=== PATIENT | male | born 1930 | race Caucasian/White ===

== ENCOUNTER 2016-04-05 08:48 | Inpatient (IN) | payer OTHER, MEDICARE ==
[~2016-04-05] VITALS: Ht 175.3 cm; Wt 92.7 kg
[2016-04-05] MEDS ORDERED: DOXA8TAB2 PO (09:51)
[2016-04-05] MEDS ORDERED: GLIM4TAB PO (09:51)
[2016-04-05] MEDS ORDERED: POTA20TA16 PO (09:51)
[2016-04-05] MEDS ORDERED: CLOP1TAB15 PO (09:51)
[2016-04-05] MEDS ORDERED: PARO1TAB27 PO (09:51)
[2016-04-05] MEDS ORDERED: LOSA100T26 PO (09:51)
[2016-04-05] MEDS ORDERED: ASPI81TA28 PO (09:51)
[2016-04-05] MEDS ORDERED: TRAZ50TA35 PO (09:51)
[2016-04-05] MEDS ORDERED: FINA5TAB PO (09:51)
[2016-04-05] MEDS ORDERED: SIMV10TA2 PO (09:51)
[2016-04-05] MEDS ORDERED: ATR25 PO (09:51)
[2016-04-05] MEDS ORDERED: PRLSR20 PO (09:51)
[2016-04-05] MEDS ORDERED: METO-217 PO (09:51)
[2016-04-05] MEDS ORDERED: LINA1TAB PO (09:51)
[2016-04-05 10:16] VITALS: BP_SYST 210; BP_SYST 211; BP_DIAS 77; BP_DIAS 91; PULSE 51; TEMP 36.6; O2SAT 99; Ht 175.3 cm; Wt 92.7 kg
[2016-04-05] MEDS ORDERED: NITROGLYCERIN 0.4 MG SL PER TAB CHARGE SL PRN (11:00)
[2016-04-05] MEDS ORDERED: ACETAMINOPHEN 325 MG TAB PO PRN (11:00)
[2016-04-05] MEDS ORDERED: LOSARTAN POTASSIUM 50 MG TAB PO SCH (11:00)
[2016-04-05] MEDS ORDERED: ONDANSETRON INJ 2 MG/ML 2 ML VIAL IV PRN (11:00)
[2016-04-05] MEDS ORDERED: MAGNESIUM HYDROXIDE SUSP 30 ML UDC PO PRN (11:00)
[2016-04-05] MEDS ORDERED: POLYETHYLENE (MIRALAX) 17 GM PACK PO PRN (11:00)
--- NOTE | 2016-04-05 11:46 | HISTORY & PHYSICAL EXAMINATION ---
DATE OF ADMISSION: 04/05/2016 CHIEF COMPLAINT: Shortness of breath. ADMITTING DIAGNOSES: Tachybrady syndrome, possible acute systolic heart failure. HISTORY: Mr. Campbell is a transfer from [facility]. The patient has had 1 week preceding history of increasing shortness of breath and a burning in his chest. The patient got to the point where he was sleeping in a chair at home. He is uncomfortable. Reportedly, when he presented to [facility], they felt he was in acute systolic heart failure with atrial fibrillation with a decreased ventricular rate (actually may be flutter at times). The patient was given diuretic therapy of Lasix, had good diuresis. He was found to have a mild elevation of his troponin and elevation of his BNP. He was felt to possibly be in NSTEMI. The patient does have a known cardiac history with stents x3 at [facility]; however, they have no beds. They then called our facility, we did have a telemetry bed available, he was transferred to our facility. Reportedly, they have no cardiac capabilities at [facility]. Currently, the patient is comfortable. He feels he has diuresed significantly while in the [facility]. The patient had some nagging right-sided abdominal pain which is an additional symptom complex that was described by the patient in the ER and his . His and daughter are at bedside and state his breathing has been significantly worse of late. PAST MEDICAL HISTORY: Coronary artery disease as mentioned with stents, diabetes with recent change in his oral diabetic medications, BPH, hypertension, and previous hip replacement. MEDICATIONS: On presentation are: 1. Amaryl 8 mg a day. 2. Aspirin 81 mg a day. 3. Plavix 75 mg a day. 4. Cardura 8 mg a day. 5. Proscar 5 mg a day. 6. Potassium 20 mEq a day. 7. Hydroxyzine 25 mg a day. 8. Losartan 100/25 daily. 9. Metoprolol ER 50 a day. 10. Paxil 20 mg a day. 11. Zocor 10 mg a day. 12. Tradjenta unknown dose daily. 13. Trazodone 50 at bedtime. 14. Omeprazole 20 a day. SOCIAL HISTORY: The patient has a distant smoking history. He also chewed snuff in his life. He has quit for many years. Does not drink alcohol. He is , accompanied by his . FAMILY HISTORY: Positive for heart disease, diabetes. REVIEW OF SYSTEMS: Ten systems were reviewed and are negative with the addition of frequent bowel movements which are formed, these are occurring currently. Otherwise, he has no other symptoms to complain. Ten systems are reviewed and otherwise negative. Of note, with regard to his chest pain, it is burning in nature, it is minor, 2-3/10. It is not reproducible by ambulation. It is worsened with a deep breath. It is not worsened with recumbency. He has no diaphoresis or nausea associated with it. He feels the shortness of breath, although occurring at the same time of his burning and his chest pain, is not brought on or associated with it. PHYSICAL EXAMINATION: GENERAL: He is a pleasant gentleman, conversant and actually joking a bit. VITAL SIGNS: Temperature 36.6, pulse 51 and down to 30, respiration rate 22-26, blood pressure is markedly elevated at 211/91, and O2 sats 99 on 2 liters. HEENT: PERRL, EOMI. He has a scar about his nose. His oropharynx is clear. NECK: Without lymphadenopathy. Currently, there is no JVD. HEART: Irregularly irregular, bradycardic. There are no murmurs that I hear. LUNGS: Clear without wheezes or crackles. Good air movement. ABDOMEN: Normoactive bowel sounds. He is diffusely mildly tender, worse so in the right mid quadrant. There is no guarding, no organomegaly. There are no abdominal bruits, no masses. EXTREMITIES: With edema to the knee, possibly 1+, it is doughy edema. He has no venous cords. No Homans sign. He has no cyanosis. NEUROLOGICAL: He is awake, alert and appropriate. Cranial nerves II-XII are intact. Equal symmetrical strength and sensation in upper and lower extremities. LABORATORY DATA: From [facility] includes a white count of 8.8, H\T\H 12 and 39, platelet count 165. BUN and creatinine are 38 and 1.7. Potassium 3.4. Glucose markedly elevated at 381. Troponin slightly elevated by their scale. EKG showing bradycardia. ASSESSMENT: An 85-year-old male here with bradycardia, 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 PLAN: For his cardiac disease, because of elevation of his troponin, this may be from his renal failure or could be from his marked bradycardia. We will trend his cardiac enzymes. We will not formally diagnose him as an NSTEMI at this point in time. We will obtain an echocardiogram and cardiac consult. We will hold his beta kiley. We will maintain his losartan with augmenting hydralazine for blood pressure control and also continue his Cardura for his BPH, will likely have some blood pressure effects. Regarding his cardiac risk factors, we will maintain his Plavix, aspirin and Zocor. Regarding his diabetes, we will maintain his Amaryl with an insulin sliding scale and hold his Tradjenta and put him on a diabetic diet. If his blood glucoses are difficult to control, we could institute an insulin drip. BPH, we will maintain Cardura and Proscar. He is having no problems moving his urine at this time. For DVT prevention, we will employ enoxaparin. This patient does not wish to be mechanically ventilated but will permit any other forms of resuscitation. LEATHA
[2016-04-05 12:00] VITALS: BP 167/72; PULSE 49; TEMP 36.9; O2SAT 97
[2016-04-05] MEDS ORDERED: PATIENT'S ALLERGY INFO NEEDS ENTERED SCH (12:00)
[2016-04-05] MEDS ORDERED: GLUCOSE 40% GEL 15 GM TUBE PO PRN (13:00)
[2016-04-05] MEDS ORDERED: GLUCAGON FOR INJ 1 MG VIAL SQ PRN (13:00)
[2016-04-05] MEDS ORDERED: GLUCOSE 10 TABS/TUBE PO PRN (13:00)
[2016-04-05] MEDS ORDERED: DEXTROSE 50% 50 ML SYR IV PRN (13:00)
[2016-04-05] MEDS: LOSARTAN POTASSIUM 50 MG TAB PO SCH (13:09)
[2016-04-05] MEDS: INSULIN ASPART 100 UNITS/ML 3 ML PEN SC SCH ×3 (13:12→21:00)
[2016-04-05 13:27] LABS: LYME DISEASE AB IGG NEG (NEG); LYME DISEASE AB IGM NEG (NEG)
[2016-04-05 13:42] LABS: INR 1.2 (0.9-1.1); PROTHROMBIN TIME (PATIENT) 12.4 SECONDS (9.0-12.0)
[2016-04-05 16:00] VITALS: BP 146/58; PULSE 58; TEMP 37; O2SAT 97
[2016-04-05 16:26] LABS: CREATININE 1.6 mg/dl (0.60-1.40)
[2016-04-05] MEDS: ENOXAPARIN 40 MG/0.4 ML SYR SC SCH (17:08)
[2016-04-05 19:20] VITALS: BP 188/88; PULSE 55; TEMP 36.8; O2SAT 98
[2016-04-05 19:46] VITALS: BP 182/80
[2016-04-05] MEDS: HydrALAZINE HCL 20 MG/ML VIAL IV PRN (19:51)
[2016-04-05 20:58] VITALS: BP 149/67; PULSE 51
[2016-04-05] MEDS: SIMVASTATIN 10 MG TAB PO SCH (21:02)
[2016-04-05] MEDS: TRAZODONE HCL 50 MG TAB PO SCH (21:02)
[2016-04-06] VITALS (9 sets, daily range): BP systolic 133–199; BP diastolic 56–96; PULSE 44–83; TEMP 36.5–36.9; O2SAT 93–98
[2016-04-06 06:31] LABS: HEMATOCRIT 37.6 % (42-52); MEAN CORPUSCULAR HEMOGLOBIN 28.8 pg (25-34); MEAN CORPUSCULAR HGB CONC 33.5 g/dl (32-36); MEAN PLATELET VOLUME 10.3 fL (7.4-10.4); PLATELET COUNT 156 K/uL (130-400); RED BLOOD COUNT 4.37 M/uL (4.7-6.1); WHITE BLOOD COUNT 8.67 K/uL (4.8-10.8)
[2016-04-06] MEDS: INSULIN ASPART 100 UNITS/ML 3 ML PEN SC SCH ×4 (07:00→20:55)
[2016-04-06 07:04] LABS: BUN/CREATININE RATIO 23.6 (10-20); CALCIUM 8.5 mg/dl (8.5-10.1); CREATININE 1.5 mg/dl (0.60-1.40); POTASSIUM 2.6 mmol/L (3.5-5.1)
[2016-04-06] MEDS: PANTOprazole SOD 40 MG TAB PO SCH (07:53)
[2016-04-06] MEDS: CLOPIDOGREL BISULFATE 75 MG TAB PO SCH (07:53)
[2016-04-06] MEDS: PAROXETINE 20 MG TAB PO SCH (07:53)
[2016-04-06] MEDS: GLIMEPIRIDE 2 MG TAB PO SCH (07:54)
[2016-04-06] MEDS: FINASTERIDE 5 MG TAB PO SCH (07:54)
[2016-04-06] MEDS: DOXAZosin MESYLATE TAB 4 MG TAB PO SCH (07:54)
[2016-04-06] MEDS: POTASSIUM CHLORIDE 20 MEQ TABCR PO SCH ×4 (07:55→20:50)
[2016-04-06] MEDS: ASPIRIN 81 MG ECTAB PO SCH (07:55)
[2016-04-06] MEDS: LOSARTAN POTASSIUM 50 MG TAB PO SCH (07:56)
[2016-04-06] MEDS ORDERED: MAGNESIUM SULFATE 1GM / D5W 1 GM in PREMIXED IN D5W 100 ML IV ONE (08:30)
[2016-04-06] MEDS ORDERED: DOXAZosin MESYLATE TAB 4 MG TAB PO SCH (09:00)
[2016-04-06] MEDS: POTASSIUM CHLR 10 MEQ / WTR 10 MEQ in PREMIXED WATER 100 ML IV SCH ×3 (09:03→11:57)
--- NOTE | 2016-04-06 11:51 | ECHOCARDIOGRAM REPORT ---
*NOTICE TO RECEIVING [employer] This information is strictly Confidential and protected under [place] law. [place] law prohibits you from making any further disclosure of this information unless further disclosure is expressly permitted by the written consent of the person to whom it pertains or is authorized by law. A general authorization for the release of medical or other information is not sufficient for this purpose. Hospital accepts no responsibility if the information is made available to any other person, INCLUDING THE PATIENT. Interpretation Summary * Name: RENEE WEBB Study Date: 04/06/2016 08:10 AM BP: 149/56 mmHg * Patient Location: C.2E\S\E209\S\1 HR: 54 * : 1930 (M/d/yyyy) Gender: Male Height: 69 in * Age: 85 yrs Ethnicity: CA Weight: 204 lb * Ordering Physician: Toni Lopez * Performed By: Xiomy Edmonds RDCS * * Reason For Study: CHF * BSA: 2.1 m2 * -- Conclusions -- * No prior study for comparison. * The left ventricle is normal in size. * There is moderate concentric left ventricular hypertrophy. * Left ventricular systolic function is low normal. * Ejection Fraction = 50-55%. * There is borderline global hypokinesis of the left ventricle. * Moderate to severe valvular aortic stenosis. * Mild aortic regurgitation. * There is moderate mitral regurgitation. * The left atrium is mildly dilated. * There is mild to moderate tricuspid regurgitation. * Right ventricular systolic pressure is elevated at 40-50mmHg. Procedure Details * A complete two-dimensional transthoracic echocardiogram was performed (2D, M-mode, Doppler and color flow Doppler). Left Ventricle * The left ventricle is normal in size. * There is moderate concentric left ventricular hypertrophy. * Left ventricular systolic function is low normal. * Ejection Fraction = 50-55%. * There is borderline global hypokinesis of the left ventricle. Right Ventricle * The right ventricle is normal in size and function. Atria * The left atrium is mildly dilated. * The right atrium is mild to moderately dilated. * The interatrial septum is intact with no evidence for an atrial septal defect. Mitral Valve * The mitral valve is normal in structure and function. * There is moderate mitral regurgitation. Tricuspid Valve * The tricuspid valve is normal in structure and function. * There is mild to moderate tricuspid regurgitation. * Right ventricular systolic pressure is elevated at 40-50mmHg. Aortic Valve * The aortic valve is trileaflet but malformed. * Moderate to severe valvular aortic stenosis. * Aortic valve area was calculated at 1.0 cm\S\2 using the continuity equation. * Mild aortic regurgitation. Pulmonic Valve * The pulmonary valve is not well seen, but the Doppler examination is normal without significant regurgitation or stenosis. * There is no pulmonic valvular regurgitation. Great Vessels * The aortic root is normal size. * No obvious dissection could be visualized. * The pulmonary artery is not well visualized, but is probably normal size. Pericardium/Pleural * There is no pericardial effusion. Great Vessels * The inferior vena cava is moderately dilated. MMode 2D Measurements and Calculations IVSd 1.4 cm LVIDd 4.9 cm LVIDs 3.3 cm LVPWd 1.2 cm IVS/LVPW 1.2 FS 33.4 % EDV(Teich) 113.9 ml ESV(Teich) 43.3 ml EF(Teich) 62.0 % EDV(cubed) 119.1 ml ESV(cubed) 35.1 ml EF(cubed) 70.5 % LV mass(C)d 251.2 grams LV mass(C)dI 120.6 grams/m\S\2 CO(Teich) 3.2 l/min CI(Teich) 1.5 l/min/m\S\2 SV(Teich) 70.6 ml SI(Teich) 33.9 ml/m\S\2 CO(cubed) 3.8 l/min CI(cubed) 1.8 l/min/m\S\2 SV(cubed) 84.0 ml SI(cubed) 40.3 ml/m\S\2 Ao root diam 3.1 cm Ao root area 7.5 cm\S\2 ACS 1.6 cm LA dimension 4.1 cm asc Aorta Diam 3.3 cm LA/Ao 1.3 LVOT diam 2.0 cm LVOT area 3.3 cm\S\2 LVAd ap4 36.9 cm\S\2 LVLd ap4 8.5 cm EDV(MOD-sp4) 131.0 ml LVAs ap4 22.4 cm\S\2 LVLs ap4 7.5 cm ESV(MOD-sp4) 56.0 ml EF(MOD-sp4) 57.3 % LVAd ap2 37.1 cm\S\2 LVLd ap2 9.2 cm EDV(MOD-sp2) 124.0 ml LVAs ap2 22.9 cm\S\2 LVLs ap2 8.3 cm ESV(MOD-sp2) 53.9 ml EF(MOD-sp2) 56.5 % CO(MOD-sp4) 3.4 l/min CI(MOD-sp4) 1.6 l/min/m\S\2 SV(MOD-sp4) 75.0 ml SI(MOD-sp4) 36.0 ml/m\S\2 CO(MOD-sp2) 3.2 l/min CI(MOD-sp2) 1.5 l/min/m\S\2 SV(MOD-sp2) 70.1 ml SI(MOD-sp2) 33.7 ml/m\S\2 Doppler Measurements and Calculations MV E max vince 111.6 cm/sec MV A max vince 54.3 cm/sec MV E/A 2.1 MV dec time 0.23 sec Ao V2 max 308.9 cm/sec Ao max PG 38.4 mmHg Ao max PG (full) 34.9 mmHg Ao V2 mean 219.8 cm/sec Ao mean PG 22.2 mmHg Ao V2 VTI 71.6 cm LUCIE(V,A) 1.0 cm\S\2 LUCIE(V,D) 1.0 cm\S\2 AI max vince 352.9 cm/sec AI max PG 49.8 mmHg AI dec slope 162.5 cm/sec\S\2 AI P1/2t 636.0 msec LV V1 max PG 3.5 mmHg LV V1 max 93.8 cm/sec MR max vince 583.0 cm/sec MR max PG 135.9 mmHg MR mean vince 456.0 cm/sec MR mean PG 90.4 mmHg MR VTI 192.7 cm SV(Ao) 536.2 ml SI(Ao) 257.4 ml/m\S\2 PA V2 max 112.7 cm/sec PA max PG 5.1 mmHg PA acc slope 719.4 cm/sec\S\2 PA acc time 0.10 sec TR max vince 311.2 cm/sec PA pr(Accel) 36.2 mmHg
--- NOTE | 2016-04-06 12:57 | Progress Note ---
Subjective Date of Service: Apr 06, 2016. Subjective Pt is still asymptomatic with relative bradycardia, no other symptoms today Review of Systems Constitutional: No fever Respiratory: No cough, No dyspnea on exertion, No shortness of breath Cardiac: No chest pain, No edema Abdomen: No diarrhea, No nausea, No pain, No vomiting Male : No dysuria, No urinary frequency Objective Vital Signs Date Time Temp Pulse Resp B/P Pulse Ox O2 Delivery O2 Flow Rate FiO2 04/06/16 08:01 36.6 44 16 173/74 93 Room Air 04/06/16 04:00 Nasal Cannula 2.0 04/06/16 04:00 36.9 54 22 149/56 98 Nasal Cannula 2.0 04/06/16 00:00 36.6 54 20 148/64 97 Nasal Cannula 4.0 04/06/16 00:00 Nasal Cannula 2.0 04/05/16 20:58 51 149/67 04/05/16 20:00 Nasal Cannula 2.0 04/05/16 19:46 182/80 04/05/16 19:20 36.8 55 18 188/88 98 Nasal Cannula 2.0 04/05/16 16:00 Nasal Cannula 2.0 04/05/16 16:00 37.0 58 16 146/58 97 Nasal Cannula 2.0 04/05/16 12:00 36.9 49 16 167/72 97 Nasal Cannula 2.0 04/05/16 12:00 Nasal Cannula 2.0 04/05/16 10:16 36.6 51 26 210/77 99 Nasal Cannula 2.0 211/91 Physical Exam General Appearance: WD/WN, no apparent distress Neck: supple, thyroid normal Respiratory/Chest: chest non-tender, lungs clear, normal breath sounds Cardiovascular: no murmur, + bradycardia Abdomen: normal bowel sounds, non tender, soft Extremities: no pedal edema, no calf tenderness Neurologic/Psychiatric: alert, oriented x 3 Laboratory Results Last 24 Hours Test 04/05/16 11:19 04/05/16 11:47 04/05/16 16:16 04/05/16 19:12 Troponin I 0.184 ng/ml 0.207 ng/ml Prothrombin Time 12.4 SECONDS Prothromb Time International Ratio 1.2 Creatinine 1.60 mg/dl Est Creatinine Clear Calc Drug Dose 38.0 ml/min Estimated GFR () 44.9 Estimated GFR (Non- 38.7 Total Bilirubin 1.2 mg/dl Direct Bilirubin 0.3 mg/dl Aspartate Amino Transf (AST/SGOT) 16 U/L Alanine Aminotransferase (ALT/SGPT) 30 U/L Alkaline Phosphatase 60 U/L Total Protein 6.3 gm/dl Albumin 3.3 gm/dl Thyroid Stimulating Hormone (TSH) 4.460 uIu/ml Lyme Disease IgG Antibody NEG Lyme Disease IgM Antibody NEG Bedside Glucose 178 mg/dl Test 04/05/16 20:06 04/06/16 06:16 04/06/16 06:17 Bedside Glucose 179 mg/dl 167 mg/dl White Blood Count 8.67 K/uL Red Blood Count 4.37 M/uL Hemoglobin 12.6 g/dL Hematocrit 37.6 % Mean Corpuscular Volume 86.0 fL Mean Corpuscular Hemoglobin 28.8 pg Mean Corpuscular Hemoglobin Concent 33.5 g/dl RDW Standard Deviation 48.3 fL RDW Coefficient of Variation 15.2 % Platelet Count 156 K/uL Mean Platelet Volume 10.3 fL Sodium Level 143 mmol/L Potassium Level 2.6 mmol/L Chloride Level 101 mmol/L Carbon Dioxide Level 32 mmol/L Anion Gap 10.0 mmol/L Blood Urea Nitrogen 35 mg/dl Creatinine 1.50 mg/dl Est Creatinine Clear Calc Drug Dose 40.5 ml/min Estimated GFR () 48.5 Estimated GFR (Non- 41.9 BUN/Creatinine Ratio 23.6 Random Glucose 177 mg/dl Calcium Level 8.5 mg/dl Assessment and Plan 85-year-old male here with bradycardia, 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 NSTEMI? elevation of his troponin,could also be from chronic renal failure stage 3 echocardiogram shows preserved EF, pending cardiac consult. Hold his beta kiley. losartan with prn hydralazine for blood pressure control Cardiac risk reduction did have previous stents continue aspirin plavix and zocor diabetes, Amaryl insulin sliding scale BPH, Cardura and Proscar. For DVT prevention, we will employ enoxaparin. This patient does not wish to be mechanically ventilated but will permit any other forms of resuscitation.
[2016-04-06] MEDS: ENOXAPARIN 40 MG/0.4 ML SYR SC SCH (16:31)
[2016-04-06] MEDS: HydrALAZINE HCL 20 MG/ML VIAL IV PRN (20:10)
[2016-04-06] MEDS: SIMVASTATIN 10 MG TAB PO SCH (20:51)
[2016-04-06] MEDS: TRAZODONE HCL 50 MG TAB PO SCH (20:52)
--- NOTE | 2016-04-06 22:12 | Progress Note ---
Progress Note Paged by nursing 21:07 Patient was complaining of right-sided chest burning. 08/02. No radiation to the neck or back. She gave 2 nitro, which patient notes helped, now pain is minimal to absent. S: patient doing well at this time, notes that pain is much improved. Denies palpitations, orthopnea, lightheadedness O: VSS HR 76; BP 139/65 Lungs clear S1 and S2 with systolic murmur in all lung bethea; noted on Echo to have /AR and MR JVD 3 cm, accentuated with RUQ palpation to angle of mandible No bibasilar crackles EKG: Atrial fibrillation; rate 84, no ecropy or pauses LAD and RBBB similar to previous EKG Anteroseptal infarct similar to previous EKG ST depression in V5 and V6, new change noted pre-Nitro; mild improvement though still present post-nitro A: 85 year old male with atypical anginal pain, now resolved with 2 nitro He is due to procedure tomorrow so in the absence of continued symptoms, will hold off on giving full dose ASA at this time Cardiac enzymes drawn: troponin slightly elevated, as compared to 0.207 on 04/05 Item Value Date Time Creatine Kinase MB 5.1 ng/ml H 04/06/162214 Creatine Kinase MB Ratio 4.1 H 04/06/162214 Troponin I 0.233 ng/ml *H 04/06/162214 Total Creatine Kinase 124 U/L 04/06/162214 P: Will trend enzymes, next check with AM labs Currently pain free; Nitro PRN for chest pain
[2016-04-06 23:02] LABS: CKMB/CK RATIO 4.1 (0-3.0)
[2016-04-07] VITALS (8 sets, daily range): BP systolic 115–187; BP diastolic 65–97; PULSE 69–98; TEMP 36.6–36.8; O2SAT 95–97
--- NOTE | 2016-04-07 01:09 | CARDIOLOGY CONSULTATION ---
DATE OF CONSULTATION: 04/06/2016 PERTINENT HISTORY: Mr. Campbell is an 85-year-old white male transferred from [facility] yesterday in decompensated congestive heart failure with a bradycardic rate. This consultation was ordered to assist in his management. The patient was in his usual state of health until several weeks ago when he began to note progressive exertional dyspnea and lower extremity edema. He also began to develop orthopnea and had several episodes of PND. The patient never experienced chest discomfort. There is no syncope, presyncope, PND, or claudication. The patient presented to the [facility] with the above complaint. He was found to be in decompensated congestive failure and was given intravenous Lasix. His EKG apparently noted atrial fibrillation with a slow ventricular response and he was transferred to our institution for further care. He has continued with intravenous diuretics and according to his report, has lost 10 pounds since presenting to [place] yesterday. He has dramatically improved in terms of his exertional dyspnea. The patient carries a history of coronary artery disease. He had 3 intracoronary stents placed at [facility] approximately 5-10 years ago. Further details are not available at this time. His plans to bring in the information cards from his intracoronary stents tomorrow. Currently, the patient is resting comfortably in the bedside chair without complaints. His and son are at the bedside. PAST MEDICAL HISTORY: 1. Coronary artery disease. 2. Intracoronary stents x3 5-10 years ago -- details pending. 3. Hypertension. 4. Hypercholesterolemia. 5. Status post left carotid endarterectomy -- 2009. 6. Diabetes mellitus. 7. BPH. 8. Status post total hip replacement. MEDICATIONS: 1. Cardura 8 mg daily. 2. Proscar 5 mg per day. 3. Aspirin 81 mg per day. 4. Plavix 75 mg per day. 5. Lovenox 40 mg subQ daily. 6. Potassium 20 mEq t.i.d. (new medication). 7. Zocor 10 mg at bedtime. 8. Amaryl 8 mg daily. 9. Desyrel 25 mg at bedtime. ALLERGIES: None. SOCIAL HISTORY: The patient is and lives with his in [place]. Does not use tobacco or alcohol. FAMILY HISTORY: Noncontributory. REVIEW OF SYSTEMS: A 10-point review of systems is negative except for that described above. PHYSICAL EXAMINATION: GENERAL: This is a well-developed, well-nourished elderly white male, seated in the chair without complaints. VITAL SIGNS: Blood pressure is 160/80 with a regular pulse of 50. Respiratory rate is 20. The patient is afebrile at 36.7 degrees Celsius. Saturation is 96% on 2 liters nasal cannula. HEENT: Negative. NECK: Supple with full carotid upstrokes. There are no carotid bruits. Jugular venous pressure is difficult to assess. There is no thyromegaly. CARDIOVASCULAR: Reveals a regular rhythm with distant heart sounds. No obvious murmurs. LUNGS: Note decreased breath sounds at the bases but no rales, rhonchi, or wheezes. ABDOMEN: Soft and nontender without bruits. EXTREMITIES: Reveal intact radial artery pulses bilaterally. Trace to 1+ pretibial edema is noted. DATA: CBC notes hemoglobin of 12.6, hematocrit 37.6, white count 8.6, platelet count 156,000. Electrolytes note a sodium of 143, potassium 2.6, chloride 101, bicarb 32, BUN 35, creatinine 1.5, glucose 177. Troponin I levels are 0.184 and 0.207. TSH is 4.66. Lyme titer is negative. Echocardiogram interpreted by Dr. Garcia today notes low normal ejection fraction of 50-55%. There is evidence of moderate to severe aortic stenosis with a valve area calculated at 1.0 cm2. Moderate mitral and tricuspid regurgitation is seen. Initial EKG notes sinus bradycardia at 50 with a complete right bundle branch pattern. Second tracing notes atrial fibrillation with a slow ventricular response. Right bundle branch block again noted. IMPRESSION: Mr. Campbell was admitted with decompensated congestive heart failure and a profound bradycardia. He is on NOAC drugs. 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 It appears that he may require permanent pacemaking. We will ask Dr. Yeh's opinion tomorrow. PLAN: 1. Continue current medications as you are. 2. Agree with continued diuresis. 3. Consult Dr. Yeh for consideration of permanent pacemaking. [facility]
[2016-04-07] MEDS: INSULIN ASPART 100 UNITS/ML 3 ML PEN SC SCH ×4 (07:00→20:54)
[2016-04-07 07:09] LABS: BUN/CREATININE RATIO 24.2 (10-20); CALCIUM 8.3 mg/dl (8.5-10.1); CREATININE 1.5 mg/dl (0.60-1.40)
[2016-04-07 07:15] LABS: CKMB/CK RATIO 10.5 (0-3.0)
[2016-04-07] MEDS: HydrALAZINE HCL 20 MG/ML VIAL IV PRN (07:31)
[2016-04-07] MEDS: LOSARTAN POTASSIUM 50 MG TAB PO SCH (07:50)
[2016-04-07] MEDS: DOXAZosin MESYLATE TAB 4 MG TAB PO SCH (07:50)
[2016-04-07] MEDS: FINASTERIDE 5 MG TAB PO SCH (07:50)
[2016-04-07] MEDS: PANTOprazole SOD 40 MG TAB PO SCH (07:50)
[2016-04-07] MEDS: ASPIRIN 81 MG ECTAB PO SCH (07:51)
[2016-04-07] MEDS: PAROXETINE 20 MG TAB PO SCH (07:51)
[2016-04-07] MEDS: POTASSIUM CHLORIDE 20 MEQ TABCR PO SCH ×2 (07:51→08:34)
[2016-04-07] MEDS: CLOPIDOGREL BISULFATE 75 MG TAB PO SCH (07:51)
[2016-04-07] MEDS: GLIMEPIRIDE 2 MG TAB PO SCH (07:51)
--- NOTE | 2016-04-07 09:58 | CARDIOLOGY PROGRESS NOTE ---
DATE: 04/07/2016 SUBJECTIVE: Mr. Campbell is resting comfortably in bed without complaints of chest pain or dyspnea. His situation was reviewed in detail with Dr. Yeh. As we review his home medications. He was apparently on metoprolol succinate 50 mg daily. Since this has been held, his heart rate has improved dramatically. OBJECTIVE: VITAL SIGNS: Blood pressure is 187/85, followed by a value of 115/65 after hydralazine 10 mg IV push. Pulse is regular at 75. Respiratory rate is 20 and the patient is afebrile at 36.6 degrees Celsius. Saturations 97% on 2 liters nasal cannula. NECK: Supple with mildly delayed and prolonged carotid upstrokes. No transmitted murmurs. No bruits. Jugular venous pressure is flat at 90 degrees. There is no thyromegaly. CARDIOVASCULAR: Reveals a regular rhythm with distant heart sounds. A 2/6 basal systolic ejection murmur is noted. LUNGS: Clear without rales, rhonchi, or wheezes. ABDOMEN: Obese without bruits. EXTREMITIES: Reveal intact radial artery pulses bilaterally. Trace pretibial edema is noted. DATA: CBC notes hemoglobin of 12.6, hematocrit 36.7, white count 8.6, platelet count 156,000. Electrolytes note a sodium of 144, potassium 3.0, chloride 104, bicarbonate 31, BUN 36, creatinine 1.5, glucose 177. Troponin I level is increased to 2.27 from a value of 0.233 yesterday. CKs remain normal. EKG this morning notes atrial fibrillation with ventricular response of 72 beats per minute. There is a right bundle branch block and a left anterior hemiblock. cardiac monitor technician notes paroxysms of atrial fibrillation interposed with sinus rhythm. IMPRESSION AND PLAN: 1. Bradycardia -- At time of presentation, bradycardia was present with both atrial fibrillation and sinus rhythm. Review of outside records now notes that he was on metoprolol succinate 50 mg daily. Since that has been held at the time of admission, his baseline heart rate has increased into the 50-70 range. It does not appear that a pacemaker is indicated at this time. 2. Diastolic congestive heart failure -- recent symptoms may have occurred due to his underlying bradycardic rate. Hopefully, with diuresis, and improvement in his basal heart rate, his symptoms will improve. 3. Increased troponin -- the patient does not give symptoms consistent with an acute coronary syndrome. Suspect that this is a supply-demand mismatch realizing his moderate left ventricular hypertrophy and his significantly elevated blood pressure intermittently. 4. Coronary artery disease -- status post intracoronary stents x3, 5 to 10 years ago in [place]. Details pending. 5. Moderate to severe aortic stenosis. 6. Low normal left ventricular ejection fraction -- 50% to 55%. 7. Hypertension -- labile. 8. Hypercholesterolemia -- continue statin. 9. Status post left carotid endarterectomy. 10. Diabetes mellitus.
[2016-04-07] MEDS ORDERED: ALUMINUM/MAGNESIUM SUSP 30 ML UDC ONE (10:46)
[2016-04-07] MEDS ORDERED: NURSING VERBAL MED ORDER ONE (11:00)
[2016-04-07] MEDS: FAMOTIDINE IV INJ 20 MG in DEXTROSE 5% 100ML 100 ML IV SCH ×2 (11:13→20:54)
[2016-04-07 11:57] LABS: CKMB/CK RATIO 12.5 (0-3.0)
[2016-04-07] MEDS ORDERED: POTASSIUM CHLORIDE 10 MEQ TABCR PO ONE (12:00)
--- NOTE | 2016-04-07 12:12 | Hospitalist Progress Note ---
Hospitalist Progress Note Date of Service Apr 07, 2016. Subjective Pt evaluation today including: conversation w/ patient, physical exam, chart review, lab review, conversation w/ international travel consultant (Cardiology), review of inpatient medication list Voiding: no voiding problems Pt had CP this AM that was a burning in right side of chest nonradiating. Relieved with maalox and SLNTG. trop bumped up today. Pt feels fine now but did have a little SOb with the CP. ECG no obvious ischemia Constitutional: No fever Respiratory: + shortness of breath Cardiovascular: + chest pain Abdomen: No constipation, No pain All Other Systems: Reviewed and Negative Objective Vital Signs Date Time Temp Pulse Resp B/P Pulse Ox O2 Delivery O2 Flow Rate FiO2 04/07/16 11:34 36.6 84 20 133/77 95 Nasal Cannula 2.0 04/07/16 11:21 Nasal Cannula 2.0 04/07/16 08:00 Nasal Cannula 2.0 04/07/16 07:49 115/65 04/07/16 07:47 181/97 04/07/16 07:47 36.6 69 20 187/85 97 Nasal Cannula 2.0 04/07/16 05:05 36.8 75 22 158/74 95 Nasal Cannula 2.0 04/07/16 04:02 Nasal Cannula 2.0 04/07/16 03:42 36.8 75 22 158/74 95 Nasal Cannula 2.0 04/07/16 00:02 Nasal Cannula 2.0 04/06/16 23:43 36.5 83 20 133/66 96 Nasal Cannula 2.0 04/06/16 20:57 76 20 139/65 96 Nasal Cannula 2.0 04/06/16 20:48 82 22 149/67 98 Nasal Cannula 2.0 04/06/16 20:10 36.8 79 22 199/96 93 Nasal Cannula 2.0 04/06/16 20:04 Nasal Cannula 2.0 04/06/16 15:38 Nasal Cannula 2.0 04/06/16 15:25 36.8 55 18 169/85 97 Nasal Cannula 2.0 04/06/16 12:00 Nasal Cannula 2.0 Physical Exam General Appearance: WD/WN, no apparent distress Eyes: normal inspection, sclerae normal Neck: trachea midline Respiratory/Chest: lungs clear, normal breath sounds, no respiratory distress, no accessory muscle use Cardiovascular: regular rate, rhythm, + pertinent finding (2/6 CARYN at RUSB and LLSB, trace pitting edema legs to knees bilat) Abdomen: normal bowel sounds, non tender, soft Neurologic/Psychiatric: alert, normal mood/affect, oriented x 3 Skin: normal color, warm/dry Laboratory Results Last 24 Hours Test 04/06/16 16:27 04/06/16 20:47 04/06/16 22:15 04/07/16 06:06 Bedside Glucose 141 mg/dl 193 mg/dl Total Creatine Kinase 124 U/L 183 U/L Creatine Kinase MB 5.1 ng/ml 19.2 ng/ml Creatine Kinase MB Ratio 4.1 10.5 Troponin I 0.233 ng/ml 2.270 ng/ml Sodium Level 144 mmol/L Potassium Level 3.0 mmol/L Chloride Level 104 mmol/L Carbon Dioxide Level 31 mmol/L Anion Gap 9.0 mmol/L Blood Urea Nitrogen 36 mg/dl Creatinine 1.50 mg/dl Est Creatinine Clear Calc Drug Dose 40.5 ml/min Estimated GFR () 48.5 Estimated GFR (Non- 41.9 BUN/Creatinine Ratio 24.2 Random Glucose 177 mg/dl Calcium Level 8.3 mg/dl Test 04/07/16 06:47 04/07/16 10:44 04/07/16 11:04 04/07/16 11:14 Bedside Glucose 172 mg/dl 267 mg/dl Creatine Kinase MB Ratio Assessment and Plan 85-year-old male here with bradycardia, 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 Troponin now elevated at 2.2 this AM and having CP that was relieved with Maalox and SLNTG, ECG unchanged NSTEMI, Bradycardia, Mod-Severe , Mild AI, mod MR, Possible PHTN, HTN: elevation of his troponin was minimal and stable, now jumped up to 2.2--> 3.2, initially could be some from chronic renal failure stage 3 however with CP now so likely was having angina. Cardiology following and no acute intervention at this time but will keep NPO after midnight in case of need for cath. Bradycardia improved now withholding Toprol, no PPM indicated. echocardiogram shows preserved EF: No prior study for comparison. * The left ventricle is normal in size. * There is moderate concentric left ventricular hypertrophy. * Left ventricular systolic function is low normal. * Ejection Fraction = 50-55%. * There is borderline global hypokinesis of the left ventricle. * Moderate to severe valvular aortic stenosis. * Mild aortic regurgitation. * There is moderate mitral regurgitation. * The left atrium is mildly dilated. * There is mild to moderate tricuspid regurgitation. * Right ventricular systolic pressure is elevated at 40-50mmHg.. Holding his beta kiley for bradycardia -continue losartan with prn hydralazine for blood pressure control -reastart beta kiley back on at lower dose for CHF and ACS-discuss with Cardiology -trend troponin -NPO in case of cath tomorrow Cardiac risk reduction did have previous stents continue aspirin plavix and zocor diabetes, Amaryl insulin sliding scale BPH, Cardura and Proscar. For DVT prevention, we will employ enoxaparin. This patient does not wish to be mechanically ventilated but will permit any other forms of resuscitation.
[2016-04-07] MEDS ORDERED: METOPROLOL SUCC 25MG EXT REL TAB PO ONE (12:30)
[2016-04-07 17:11] LABS: BUN/CREATININE RATIO 22.3 (10-20); CALCIUM 8.7 mg/dl (8.5-10.1); CREATININE 1.6 mg/dl (0.60-1.40); POTASSIUM 3.5 mmol/L (3.5-5.1)
[2016-04-07] MEDS: ENOXAPARIN 40 MG/0.4 ML SYR SC SCH (17:32)
[2016-04-07] MEDS: SIMVASTATIN 10 MG TAB PO SCH (20:52)
[2016-04-07] MEDS: TRAZODONE HCL 50 MG TAB PO SCH (20:52)
[2016-04-08] VITALS (11 sets, daily range): BP systolic 145–174; BP diastolic 61–98; PULSE 59–96; TEMP 36.5–37.1; O2SAT 94–98
[2016-04-08 06:22] LABS: BASO % 0.3 %; BASO ABS # 0.03 K/uL (0-0.2); COMPLETE YES; EOS % 1.9 %; HEMATOCRIT 39.2 % (42-52); IG% 0.3 %; LYMPH % 13.3 %; LYMPH ABS # 1.25 K/uL (1.2-3.4); MEAN CELL VOLUME 86.9 fL (80-100); MEAN CORPUSCULAR HEMOGLOBIN 29.5 pg (25-34); MEAN CORPUSCULAR HGB CONC 33.9 g/dl (32-36); MEAN PLATELET VOLUME 10.4 fL (7.4-10.4); MONO % 8.6 %; NEUT % 75.6 %; PLATELET COUNT 159 K/uL (130-400); RED BLOOD COUNT 4.51 M/uL (4.7-6.1); WHITE BLOOD COUNT 9.39 K/uL (4.8-10.8)
[2016-04-08 06:52] LABS: BUN/CREATININE RATIO 19.3 (10-20); CALCIUM 8.3 mg/dl (8.5-10.1); CREATININE 1.5 mg/dl (0.60-1.40); POTASSIUM 3.4 mmol/L (3.5-5.1)
[2016-04-08] MEDS: INSULIN ASPART 100 UNITS/ML 3 ML PEN SC SCH ×3 (07:00→17:10)
[2016-04-08] MEDS: POTASSIUM CHLORIDE 20 MEQ TABCR PO SCH (07:57)
[2016-04-08] MEDS: GLIMEPIRIDE 2 MG TAB PO SCH (07:58)
[2016-04-08] MEDS: FINASTERIDE 5 MG TAB PO SCH (07:58)
[2016-04-08] MEDS: PANTOprazole SOD 40 MG TAB PO SCH (07:58)
[2016-04-08] MEDS: ASPIRIN 81 MG ECTAB PO SCH (07:58)
[2016-04-08] MEDS: LOSARTAN POTASSIUM 50 MG TAB PO SCH (07:58)
[2016-04-08] MEDS: CLOPIDOGREL BISULFATE 75 MG TAB PO SCH (07:58)
[2016-04-08] MEDS: PAROXETINE 20 MG TAB PO SCH (07:59)
[2016-04-08] MEDS: DOXAZosin MESYLATE TAB 4 MG TAB PO SCH (07:59)
[2016-04-08] MEDS ORDERED: POTASSIUM CHLORIDE 10 MEQ TABCR PO ONE (08:30)
[2016-04-08] MEDS ORDERED: NURSING VERBAL MED ORDER ONE ×3 (08:45→18:15)
[2016-04-08] MEDS: FAMOTIDINE IV INJ 20 MG in DEXTROSE 5% 100ML 100 ML IV SCH (08:56)
[2016-04-08] MEDS ORDERED: LORAZEPAM 2 MG/ML 1 ML VIAL ONE (08:58)
[2016-04-08] MEDS ORDERED: HEPARIN 25,000 UNIT/500ML D5W 500 ML IV PRN (09:00)
[2016-04-08] MEDS ORDERED: METOPROLOL SUCC 25MG EXT REL TAB PO SCH (09:00)
[2016-04-08] MEDS ORDERED: SODIUM CHLORIDE 0.9% 1000ML 1,000 ML IV SCH (09:15)
--- NOTE | 2016-04-08 09:27 | Hospitalist Progress Note ---
Hospitalist Progress Note Date of Service Apr 08, 2016. Subjective Pt evaluation today including: conversation w/ patient, physical exam, chart review, lab review, review of studies, conversation w/ crm consultant (Cardiology), review of inpatient medication list PO Intake: NPO Voiding: no voiding problems Pt denies CP or SOB, no abd pain, making urine. NPO for possible cath today. Afib and flutter on tele with lowest rate in the mid 50s after restarting lower dose Toprol Constitutional: No fever Respiratory: No shortness of breath Cardiovascular: No chest pain Abdomen: No pain Psychiatric: + anxiety (about upcoming procedure) All Other Systems: Reviewed and Negative Objective Vital Signs Date Time Temp Pulse Resp B/P Pulse Ox O2 Delivery O2 Flow Rate FiO2 04/08/16 08:09 36.5 67 18 157/73 98 04/08/16 04:02 Nasal Cannula 2.0 04/08/16 03:54 36.7 62 21 155/85 95 Nasal Cannula 2.0 04/08/16 00:36 37.1 65 22 174/98 97 Nasal Cannula 2.0 04/08/16 00:02 Nasal Cannula 2.0 04/07/16 20:04 Nasal Cannula 2.0 04/07/16 19:49 36.8 72 18 164/81 96 04/07/16 16:30 36.8 72 18 139/77 96 04/07/16 16:00 Nasal Cannula 2.0 04/07/16 11:34 36.6 84 20 133/77 95 Nasal Cannula 2.0 04/07/16 11:21 Nasal Cannula 2.0 04/07/16 10:50 98 20 142/81 95 Physical Exam General Appearance: WD/WN, no apparent distress Eyes: normal inspection, sclerae normal Neck: trachea midline Respiratory/Chest: lungs clear, normal breath sounds, no respiratory distress, no accessory muscle use Cardiovascular: regular rate, rhythm, no murmur, + pertinent finding (trace edema) Abdomen: normal bowel sounds, non tender, soft Extremities: no calf tenderness Neurologic/Psychiatric: alert, oriented x 3 Skin: normal color, warm/dry, no rash Laboratory Results Last 24 Hours Test 04/07/16 11:04 04/07/16 11:14 04/07/16 16:16 04/07/16 16:35 Total Creatine Kinase 218 U/L Creatine Kinase MB 27.3 ng/ml Creatine Kinase MB Ratio 12.5 Troponin I 3.210 ng/ml Bedside Glucose 267 mg/dl 280 mg/dl Sodium Level 144 mmol/L Potassium Level 3.5 mmol/L Chloride Level 103 mmol/L Carbon Dioxide Level 29 mmol/L Anion Gap 12.0 mmol/L Blood Urea Nitrogen 36 mg/dl Creatinine 1.60 mg/dl Est Creatinine Clear Calc Drug Dose 38.0 ml/min Estimated GFR () 44.9 Estimated GFR (Non- 38.7 BUN/Creatinine Ratio 22.3 Random Glucose 246 mg/dl Calcium Level 8.7 mg/dl Test 04/07/16 20:33 04/07/16 21:03 04/08/16 05:51 04/08/16 06:43 Bedside Glucose 186 mg/dl 113 mg/dl Troponin I 6.150 ng/ml White Blood Count 9.39 K/uL Red Blood Count 4.51 M/uL Hemoglobin 13.3 g/dL Hematocrit 39.2 % Mean Corpuscular Volume 86.9 fL Mean Corpuscular Hemoglobin 29.5 pg Mean Corpuscular Hemoglobin Concent 33.9 g/dl Platelet Count 159 K/uL Mean Platelet Volume 10.4 fL Neutrophils (%) (Auto) 75.6 % Lymphocytes (%) (Auto) 13.3 % Monocytes (%) (Auto) 8.6 % Eosinophils (%) (Auto) 1.9 % Basophils (%) (Auto) 0.3 % Neutrophils # (Auto) 7.09 K/uL Lymphocytes # (Auto) 1.25 K/uL Monocytes # (Auto) 0.81 K/uL Eosinophils # (Auto) 0.18 K/uL Basophils # (Auto) 0.03 K/uL RDW Standard Deviation 49.8 fL RDW Coefficient of Variation 15.5 % Immature Granulocyte % (Auto) 0.3 % Immature Granulocyte # (Auto) 0.03 K/uL Sodium Level 146 mmol/L Potassium Level 3.4 mmol/L Chloride Level 105 mmol/L Carbon Dioxide Level 32 mmol/L Anion Gap 9.0 mmol/L Blood Urea Nitrogen 29 mg/dl Creatinine 1.50 mg/dl Est Creatinine Clear Calc Drug Dose 40.5 ml/min Estimated GFR () 48.5 Estimated GFR (Non- 41.9 BUN/Creatinine Ratio 19.3 Random Glucose 108 mg/dl Calcium Level 8.3 mg/dl Magnesium Level 2.0 mg/dl Test 04/08/16 08:32 04/08/16 08:33 Troponin I 9.290 ng/ml Assessment and Plan 85-year-old male here with A-fib/flutter with bradycardia, 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 Troponin continues to rise from 0.2-->2.2->3->6-->9 and had CP that was relieved with Maalox and SLNTG, ECG unchanged NSTEMI, A-fib/flutter with Bradycardia, Mod-Severe , Mild AI, mod MR, Possible PHTN, HTN: Bradycardia improved with holding and then adding back lower dose of Toprol. Now with rising trop with vague symptoms in setting of known CAD. Cardiology following and plan for cath today. Bradycardia improved now withholding Toprol, no PPM indicated. echocardiogram shows preserved EF: No prior study for comparison. * The left ventricle is normal in size. * There is moderate concentric left ventricular hypertrophy. * Left ventricular systolic function is low normal. * Ejection Fraction = 50-55%. * There is borderline global hypokinesis of the left ventricle. * Moderate to severe valvular aortic stenosis. * Mild aortic regurgitation. * There is moderate mitral regurgitation. * The left atrium is mildly dilated. * There is mild to moderate tricuspid regurgitation. * Right ventricular systolic pressure is elevated at 40-50mmHg.. Holding his beta kiley for bradycardia -continue losartan with prn hydralazine for blood pressure control -reastarted Toprol XL 25mg, beta kiley back on at lower dose for CHF and ACS -trend troponin -cath today -start heparin gtt without bolus now -replace lytes Cardiac risk reduction did have previous stents continue aspirin plavix and zocor diabetes, Amaryl insulin sliding scale BPH, Cardura and Proscar. 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
--- NOTE | 2016-04-08 09:52 | Procedure Note ---
Pre-Mod Sedation Assessment General Date of Moderate Sedation: Apr 08, 2016. Vital Signs: Vital Signs Past 12 Hours Date Time Temp Pulse Resp B/P Pulse Ox O2 Delivery O2 Flow Rate FiO2 04/08/16 09:38 36.5 67 20 157/73 Room Air 04/08/16 08:09 36.5 67 18 157/73 98 04/08/16 08:00 Nasal Cannula 2.0 04/08/16 04:02 Nasal Cannula 2.0 04/08/16 03:54 36.7 62 21 155/85 95 Nasal Cannula 2.0 04/08/16 00:36 37.1 65 22 174/98 97 Nasal Cannula 2.0 04/08/16 00:02 Nasal Cannula 2.0 Review Cardiovascular: regular rate, rhythm Abdomen: soft Lungs: lungs clear Airway Class: I Pre-Sedation Airway Assessment Oral Cavity: Dentures Able to Visualize Vocal Cords: No Short Thick Neck: No Hx of Sleep Apnea: No Smoking Status: Never Smoker Mallampati Classification: Class II ASA Classification: Class II Procedure Planning Contraindications-for Mod Sed: None Yes Notes The planned sedation has been discussed with the patient and consent obtained. I have identified the patient, determined the appropriateness of sedation and have assessed the patient immediately prior to the procedure. All medicine(s) and interventions are by my order.
[2016-04-08 09:54] LABS: INR 1.1 (0.9-1.1); PARTIAL THROMBOPLASTIN RATIO 1.1
--- NOTE | 2016-04-08 10:15 | CARDIOLOGY PROGRESS NOTE ---
DATE: 04/08/2016 DATE: 04/08/2016. SUBJECTIVE: Mr. Campbell is resting comfortably at the bedside. He has had intermittent episodes of "indigestion" which responded to sublingual nitroglycerin. Troponin continues to increase. The situation was reviewed in detail with the patient. We have recommended proceeding with cardiac catheterization. The patient is agreeable. OBJECTIVE: VITAL SIGNS: Blood pressure is 157/73 with a regular pulse of 67. Respiratory rate is 20. The patient is afebrile at 36.5 degrees Celsius. Saturations 98% on room air. NECK: Supple with mildly delayed and prolonged carotid upstrokes. No transmitted murmurs. Jugular venous pressure is flat at 90 degrees. There is no thyromegaly. CARDIOVASCULAR EXAMINATION: Reveals a regular rhythm with a 2/6 crescendo decrescendo systolic murmur heard loudest at the base. S2 is audible at the apex. LUNGS: Clear without rales, rhonchi, or wheezes. ABDOMEN: Obese without bruits. EXTREMITIES: Reveal intact radial artery pulses bilaterally. Trace pretibial edema is noted. DATA: CBC notes a hemoglobin of 13.3, hematocrit 39.2, white count 9.3, platelet count 159,000. Electrolytes note a sodium of 146, potassium 3.4, chloride 105, bicarbonate 32, BUN 29, creatinine 1.5, glucose 108. Troponin I level now up to 9.29 at 8:30 this morning. CKs remain normal. EKG yesterday morning noted sinus tachycardia versus atrial flutter with 2:1 conduction. 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 clinical research monitor notes paroxysms of atrial fibrillation. IMPRESSION AND PLAN: 1. Elevated troponin -- patient continues to have vague symptoms of "indigestion" which responded to sublingual nitroglycerin. He does have a history of 3 prior intercoronary stents. His EKG notes no acute changes, however, his significant conduction system disease. I have discussed proceeding with a cardiac catheterization with Dr. Christopher and Dr. Collins. We will proceed later today. Will place on intravenous heparin without bolus this time. Continue low dose beta blockade. 2. Bradycardia - improved with reduced dose of metoprolol succinate. 3. Diastolic congestive heart failure - has improved with diuresis and increase in basal heart rate. 4. Coronary artery disease status post coronary stents x3. Details pending. 5. Moderate to severe aortic stenosis - with valve area of 1.0 square cm. 6. Low normal left ventricular ejection fraction - 50-55%. 7. Hypertension -- labile. 8. Hypercholesterolemia -- continue statin. 9. Status post left carotid endarterectomy. 10. Diabetes mellitus.
[2016-04-08] MEDS ORDERED: HEPARIN SOD (PORCINE) 1000 UNIT/ML 10 ML VIAL ONE (11:13)
[2016-04-08] MEDS ORDERED: MIDAZOLAM HCL 1 MG/ML 2ML VIAL ONE (11:13)
[2016-04-08] MEDS ORDERED: FENTANYL CITRATE INJ 50 MCG/1 ML 2 ML VIAL ONE (11:13)
[2016-04-08] MEDS ORDERED: NiCARDipine HCL INJ 2.5 MG/ML 10 ML AMP ONE (11:13)
[2016-04-08] MEDS ORDERED: NITROGLYCERIN/D5W 100MCG/ML 20ML SYR ONE (11:14)
--- NOTE | 2016-04-08 11:34 | Procedure Note ---
Pre-Mod Sedation Assessment General Date of Moderate Sedation: Apr 08, 2016. Vital Signs: Vital Signs Past 12 Hours Date Time Temp Pulse Resp B/P Pulse Ox O2 Delivery O2 Flow Rate FiO2 04/08/16 11:00 Nasal Cannula 2.0 04/08/16 09:38 36.5 67 20 157/73 Room Air 04/08/16 08:09 36.5 67 18 157/73 98 04/08/16 08:00 Nasal Cannula 2.0 04/08/16 04:02 Nasal Cannula 2.0 04/08/16 03:54 36.7 62 21 155/85 95 Nasal Cannula 2.0 04/08/16 00:36 37.1 65 22 174/98 97 Nasal Cannula 2.0 04/08/16 00:02 Nasal Cannula 2.0 Review Cardiovascular: regular rate, rhythm, + systolic murmur, + irregularly irregular Abdomen: non tender, soft Lungs: lungs clear Airway Class: I Pre-Sedation Airway Assessment Oral Cavity: Dentures Able to Visualize Vocal Cords: No Short Thick Neck: No Hx of Sleep Apnea: No Smoking Status: Former Smoker Mallampati Classification: Class III Procedure Planning Contraindications-for Mod Sed: None Yes Notes The planned sedation has been discussed with the patient and consent obtained. I have identified the patient, determined the appropriateness of sedation and have assessed the patient immediately prior to the procedure. All medicine(s) and interventions are by my order.
[2016-04-08] MEDS ORDERED: SODIUM CHLORIDE 0.9% 1000ML 250 ML IV PRN (12:34)
--- NOTE | 2016-04-08 12:35 | Procedure Note ---
Post-Mod Sedation Assessment General Date of Moderate Sedation Apr 08, 2016. Vital Signs: Vital Signs Past 12 Hours Date Time Temp Pulse Resp B/P Pulse Ox O2 Delivery O2 Flow Rate FiO2 04/08/16 12:24 69 16 132/68 98 Room Air 04/08/16 12:09 69 16 144/83 98 Room Air 04/08/16 11:00 Nasal Cannula 2.0 04/08/16 09:38 36.5 67 20 157/73 Room Air 04/08/16 08:09 36.5 67 18 157/73 98 04/08/16 08:00 Nasal Cannula 2.0 04/08/16 04:02 Nasal Cannula 2.0 04/08/16 03:54 36.7 62 21 155/85 95 Nasal Cannula 2.0 04/08/16 00:36 37.1 65 22 174/98 97 Nasal Cannula 2.0 Review - Discharge Criteria Vital Signs Stable: Yes Alert/Oriented/Conversant: Yes Returned to Baseline Mental St: Yes Nausea Absent/Minimal: Yes Pain/Discomfort/Absent/Minimal: Yes Normal/Baseline Respirations: Yes Active Bleeding?: No Pt Received D/C Instructions: N/A Prescriptions Given: None Specific Proced. D/C Criteria Distal Pulses Present (Cardiac: Yes Groin site assessed-Card Cath: N/A Voided Prior To Discharge: N/A Discharged Patients Adult Escort/Transportation: N/A
[2016-04-08] MEDS ORDERED: ACETAMINOPHEN 325 MG TAB PO PRN (12:45)
[2016-04-08] MEDS ORDERED: ONDANSETRON INJ 2 MG/ML 2 ML VIAL IV PRN (12:45)
[2016-04-08] MEDS ORDERED: ATROPINE SULFATE 0.1 MG/ML 5ML SYR IV PRN (12:45)
[2016-04-08] MEDS ORDERED: NITROGLYCERIN OINT 2% 1GM PACKET EXT SCH (14:00)
--- NOTE | 2016-04-08 14:05 | Cardiac Catheterization ---
Procedure Note Procedure Date Apr 08, 2016. 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 Remote history of 3 coronary artery stents. Details unavailable. Documentation of non ST elevation myocardial infarction ,atrial fibrillation,acute CHF on this admission.Peak troponin I thus far 9.290. Echocardiogram with LV ejection fraction 50-55%, borderline global hypokinesis of left ventricle, moderate to severe valvular aortic stenosis, mild aortic regurgitation, moderate mitral regurgitation, [id number] tricuspid regurgitation, elevated estimated right ventricular systolic pressure 40-50 mm of mercury. Coronary angiography was indicated to assess for presence of significant coronary artery disease. Catheterization site: 6 Maltese slender glide sheath right radial artery. Diagnostic catheter: 5 Maltese brachial 3.5 diagnostic catheter. This catheter was used to cross the aortic valve over a standard J tipped guidewire. Hemostasis: Terumo TR band. Complications: None Findings: Fluoroscopy revealed coronary calcifications and presence of stents in the right coronary artery. The coronary circulation was right dominant. The left main coronary artery was visualized is a diffusely diseased vessel. The distal left main had an 80-90% stenosis. The proximal and mid left main appeared to have at least 70-80% luminal diameter narrowing. The left main gave rise to medium caliber left injury sitting left circumflex coronary arteries. The proximal LAD had a 75% stenosis. Mid LAD 50% stenosis. The distal LAD was a very small caliber and terminates prior to reaching the apex of the left ventricle. MARIE 2 flow in the distal LAD. The LAD gave rise to 3 very small caliber diagonal branches. The ostium of the left circumflex had a 75% stenosis. the proximal left circumflex had a 95% stenosis. Mid circumflex had a 50% stenosis. The proximal mid circumflex gave rise to very small caliber 1st and 2nd marginal arteries. The mid circumflex then gave rise to a long small to medium caliber 3rd marginal artery. This had a 20-30% proximal stenosis. The mid segment of the marginal had 0-10% stenosis. The distal marginal had 0-10% stenosis. The right coronary was a medium to large caliber vessel. Proximal 10-20% stenosis. 50% mid stenosis. 30% distal stenosis. The RCA gave rise to long small caliber posterior descending and posterior lateral arteries. The ostium of the PDA had a 20% stenosis. Mid PDA 75-90% stenosis. Distal PDA 10-20% stenosis. The proximal posterolateral had a 50% stenosis. Plan: If the patient did undergo revascularization , CABG surgery would be indicated. This will be discussed with him by his primary environmental marketer during this hospitalization Dr. Gil Vines. He will continue on medical therapy for control of his intracardiac pressures, heart rate, systemic pressure, and CAD risk factor modification. Hemodynamics Rest Ao: 145/67/97 mm Hg Final Ao: 141/58/91 mm Hg LV: 158/26 mm Hg Recommendations CABG Specimens None Radiation Exposure (mGy) 1049 Contrast (mls) 40 ml Visipaque Fluids (cc crystalloids) 9 Drains none Anesthesia Intravenous Versed and fentanyl. Lidocaine 1% for local. Procedural Complication(s) None Disposition PCU ACC Data Cardiac Status Clinical evaluation leading to the procedure CAD Presntation: Non STEMI Anginal Classification: CCS IV Heart Failure: NYHA Class: CCS IV Cardiogenic Shock w/in 24Hrs: No Cardiac Arrest w/in 24Hrs: No Imaging studies past 6 months: Yes Stress studies past 6 months: No Standard Exercise Stress Test: No Stress Echocardiogram: No Stress Testing w/SPECT MPI: No Cardiac CTA: No Coronary Anatomy Dominant: Right Left Main (% Stenosis): Ostial (70), Proximal (70), Mid (70), Distal (80-90) LAD (% Stenosis): Proximal (75), Mid (50), Distal Circumflex (% Stenosis): Ostial (75), Proximal (95), Mid (50) OM1 (% Stenosis): Normal OM2 (% Stenosis): Normal OM3 (% Stenosis): Proximal (20-30), Mid (0-10), Distal (0-10) RCA (% Stenosis): Proximal (10-20), Mid (50), Distal (30) R PDA (% Stenosis): Ostial (20), Mid (75-90), Distal (10-20) R PL1 (% Stenosis): Proximal (50) Left Ventricular Angiography EF (%): NA Diagnostic Physician's Name: Yosi Collins M.D. Closure Device Percutaneous Entry Location: Radial Closure Device: Radial Band Recommendations: CABG
[2016-04-08] MEDS ORDERED: NTRO1 EXT (15:12)
[2016-04-08] MEDS ORDERED: DSY50 PO (15:12)
[2016-04-08] MEDS ORDERED: CZR50 PO (15:12)
[2016-04-08] MEDS ORDERED: HYDI IV (15:12)
[2016-04-08] MEDS ORDERED: TPRSR25 PO (15:12)
[2016-04-08] MEDS ORDERED: NTRSLP4 SL (15:12)
--- NOTE | 2016-04-08 15:19 | Discharge Instructions ---
Discharge Instructions Admission Reason for Admission: New Onset Afib, Chf Discharge Discharge Diagnosis / Problem: NSTEMI, severe CAD Discharge Goals Goal(s): Improve disease control, Diagnostic testing, Therapeutic intervention Activity Recommendations Activity Limitations: as noted below Exercise/Sports Limitations: rest today . Instructions / Follow-Up Instructions / Follow-Up Mr. Campbell is a transfer from [place] [facility]. The patient has had 1 week preceding history of increasing shortness of breath and a burning in his chest. The patient got to the point where he was sleeping in a chair at home. He is uncomfortable. Reportedly, when he presented to [facility], they felt he was in acute systolic heart failure with atrial fibrillation with a decreased ventricular rate (actually may be flutter at times). The patient was given diuretic therapy of Lasix, had good diuresis. He was found to have a mild elevation of his troponin and elevation of his BNP. He was felt to possibly be in NSTEMI. The patient does have a known cardiac history with stents x3 at [facility]; however, they have no beds. They then called our facility, we did have a telemetry bed available, he was transferred to our facility. Reportedly,they have no cardiac capabilities at [facility]. He feels he has diuresed significantly while in the [place] ER. The patient had some nagging right-sided abdominal pain which is an additional symptom complex that was described by the patient in the ER and his . His and daughter are at bedside and state his breathing has been significantly worse of late. He was transferred to our facility and shortly after his troponin increased and continued to increase to 9. He was taken for cardiac catheterization and found to have severe multivessel disease. 85-year-old male here with A-fib/flutter with bradycardia which improved with lowering metoprolol dose, possibly acute systolic heart failure. Troponin continues to rise from 0.2-->2.2->3->6-->9 and had CP that was relieved with Maalox and SLNTG, ECG unchanged NSTEMI, A-fib/flutter with Bradycardia, Mod-Severe , Mild AI, mod MR, Possible PHTN, HTN: Bradycardia improved with holding and then adding back lower dose of Toprol. Now with rising trop with vague symptoms in setting of known CAD. Cardiology following cath today showed severe multivessel disease: CARDIAC CATH: Clinical indications: Longstanding history of coronary artery disease. Remote history of 3 coronary artery stents. Details unavailable. Documentation of non ST elevation myocardial infarction ,atrial fibrillation,acute CHF on this admission.Peak troponin I thus far 9.290. Echocardiogram with LV ejection fraction 50-55%, borderline global hypokinesis of left ventricle, moderate to severe valvular aortic stenosis, mild aortic regurgitation, moderate mitral regurgitation, [id number] tricuspid regurgitation, elevated estimated right ventricular systolic pressure 40-50 mm of mercury. Coronary angiography was indicated to assess for presence of significant coronary artery disease. Catheterization site: 6 Occitan slender glide sheath right radial artery. Diagnostic catheter: 5 Occitan brachial 3.5 diagnostic catheter. This catheter was used to cross the aortic valve over a standard J tipped guidewire. Hemostasis: Terumo TR band. Complications: None Findings: Fluoroscopy revealed coronary calcifications and presence of stents in the right coronary artery. The coronary circulation was right dominant. The left main coronary artery was visualized is a diffusely diseased vessel. The distal left main had an 80-90% stenosis. The proximal and mid left main appeared to have at least 70-80% luminal diameter narrowing. The left main gave rise to medium caliber left injury sitting left circumflex coronary arteries. The proximal LAD had a 75% stenosis. Mid LAD 50% stenosis. The distal LAD was a very small caliber and terminates prior to reaching the apex of the left ventricle. MARIE 2 flow in the distal LAD. The LAD gave rise to 3 very small caliber diagonal branches. The ostium of the left circumflex had a 75% stenosis. the proximal left circumflex had a 95% stenosis. Mid circumflex had a 50% stenosis. The proximal mid circumflex gave rise to very small caliber 1st and 2nd marginal arteries. The mid circumflex then gave rise to a long small to medium caliber 3rd marginal artery. This had a 20-30% proximal stenosis. The mid segment of the marginal had 0-10% stenosis. The distal marginal had 0-10% stenosis. The right coronary was a medium to large caliber vessel. Proximal 10-20% stenosis. 50% mid stenosis. 30% distal stenosis. The RCA gave rise to long small caliber posterior descending and posterior lateral arteries. The ostium of the PDA had a 20% stenosis. Mid PDA 75-90% stenosis. Distal PDA 10-20% stenosis. The proximal posterolateral had a 50% stenosis. Plan: If the patient did undergo revascularization , CABG surgery would be indicated. This will be discussed with him by his primary regulatory affairs strategy specialist during this hospitalization Dr. Gil Vines. He will continue on medical therapy for control of his intracardiac pressures, heart rate, systemic pressure, and CAD risk factor modification. Bradycardia improved now withholding Toprol, no PPM indicated. Echocardiogram shows preserved EF: No prior study for comparison. * The left ventricle is normal in size. * There is moderate concentric left ventricular hypertrophy. * Left ventricular systolic function is low normal. * Ejection Fraction = 50-55%. * There is borderline global hypokinesis of the left ventricle. * Moderate to severe valvular aortic stenosis. * Mild aortic regurgitation. * There is moderate mitral regurgitation. * The left atrium is mildly dilated. * There is mild to moderate tricuspid regurgitation. * Right ventricular systolic pressure is elevated at 40-50mmHg.. Holding his beta kiley for bradycardia -continue losartan with prn hydralazine for blood pressure control -restarted Toprol XL 25mg, beta kilye back on at lower dose for CHF and ACS -trend troponin to peak -transfer to [facility] [place] -started heparin gtt without bolus on AM of 04/08 but stopped after cath -replaced lytes -Accepting physician is Dr. Ernesto Patterson Cardiac risk reduction did have previous stents continue aspirin plavix and zocor diabetes, Amaryl insulin sliding scale BPH, Cardura and Proscar. Probable CKD Stage III- plasterer maintenance 1.5 and no old labs for reference -renally dose meds IVFs to hydrate prior to cath today -avoid nephrotoxins For DVT prevention,on Lovenox and then heparin gtt This patient does not wish to be mechanically ventilated but will permit any other forms of resuscitation. Current Hospital Diet Patient's current hospital diet: Diabetes Type 2 Diet Discharge Diet Recommended Diet: AHA Diet (Heart Healthy), Diabetes Type 2 Diet Procedures Procedures Performed: Left heart catheterization ECHO Pending Studies Studies pending at discharge: no Medical Emergencies . Who to Call and When: Medical Emergencies: If at any time you feel your situation is an emergency, please call 911 immediately. . Non-Emergent Contact Non-Emergency issues call your: Primary Care Provider, Regulatory Affairs Strategy Specialist . . "Provider Documentation" section prepared by Denita Christopher. VTE Core Measure Inpt VTE Proph given/why not?: Enoxaparin (Lovenox)SQ, Unfractionated heparin SQ
--- NOTE | 2016-04-08 15:24 | Discharge Summary ---
Discharge Summary Admission Date: Apr 05, 2016 at 09:30 Discharge Disposition[place] [place] Physician Dr. Ernesto Patterson[place] Principal Diagnosis: NSTEMI, Severe CAD Problems/Secondary Diagnoses: Paroxysmal A-fib/flutter with bradycardia Acute diastolic congestive heart failure Mod-Severe Mild AI Mod MR Possible PHTN HTN Diabetes mellitus type II BPH Probable CKD Stage III Procedures: Left heart catheterization ECHO Consultations: Cardiology Medication Reconciliation New Medications: Hydralazine HCl (Hydralazine HCl) 20 Mg/Ml Inj 10 MG IV Q4H PRN for HYPERTENSION for 30 Days Losartan Potassium (Losartan Potassium) 50 Mg Tab 100 MG PO QAM for 30 Days, TAB Metoprolol Succinate (Metoprolol Succinate ER) 25 Mg Tabcr 25 MG PO QAM for 30 Days Nitroglycerin (Nitro-Bid) 1 Inch/Pkt Oint 0.5 INCH EXT Q6H for 30 Days Nitroglycerin (Nitrostat) 0.4 Mg/1 Tab Subl 0.4 MG SL UD PRN for Chest Pain for 30 Days Trazodone HCl (Trazodone HCl) 50 Mg Tab 25 MG PO HS for 30 Days, TAB Continued Medications: Aspirin (Aspirin Ec) 81 Mg Tab 81 MG PO DAILY Clopidogrel (Plavix) 75 Mg Tab 75 MG PO DAILY, TAB Doxazosin Mesylate (Cardura) 8 Mg Tab 1 TAB PO DAILY for 90 Days, #90 TAB 1 Refill Finasteride (Proscar) 5 Mg Tab 5 MG PO DAILY, TAB Glimepiride (Amaryl) 4 Mg Tab 8 MG PO DAILY, TAB Linagliptin (Tradjenta) 5 Mg Tab 1 TAB PO DAILY for 90 Days, #90 TAB 1 Refill Omeprazole (Prilosec) 20 Mg Capcr 20 MG PO DAILY, CAP Paroxetine (Paxil) 20 Mg Tab 20 MG PO DAILY, TAB Potassium Ext Rel (Klor-Con) 20 Meq Tabcr 20 MEQ PO DAILY, TAB Simvastatin (Zocor) 10 Mg Tab 10 MG PO QPM, TAB Discontinued Medications: Hydroxyzine HCl (Hydroxyzine HCl) 25 Mg Tab 25 MG PO DAILY Losartan Potassium & Hydrochlo (Losartan Potassium/Hydroc) 1 Tab Tab 1 TAB PO DAILY for 30 Days, #30 TAB 5 Refills Metoprolol Succinate (Toprol Xl) 50 Mg Tabcr 50 MG PO DAILY, #30 TAB Trazodone Hcl (Trazodone) 50 Mg Tab 50 MG PO, TAB Discharge Exam Review of Systems: Constitutional: No fever Eyes: No problem reported Respiratory: No cough, No shortness of breath Cardiovascular: No chest pain Abdomen: No pain Musculoskeletal: No problem reported Genitourinary - Male: No problem reported Neurologic: No problem reported Psychiatric: No problem reported Endocrine: No problem reported Hematologic / Lymphatic: No problem reported Integumentary: No problem reported Physical Exam: General Appearance: WD/WN, no apparent distress Eyes: normal inspection, sclerae normal ENT: hearing grossly normal Neck: trachea midline Respiratory/Chest: no respiratory distress, no accessory muscle use, + crackles (at bases bilat) Cardiovascular: regular rate, rhythm, no gallop, + systolic murmur (2/6 CARYN at RUSB), + pertinent finding (trace pitting edema legs to knees bilat) Abdomen / GI: normal bowel sounds, non tender, soft, no organomegaly Extremities: no calf tenderness Neurologic/Psychiatric: alert, normal mood/affect, oriented x 3 Skin: normal color, warm/dry, no rash Lymphatic: no adenopathy Hospital Course Mr. Campbell is a transfer from [place] [facility]. The patient has had 1 week preceding history of increasing shortness of breath and a burning in his chest. The patient got to the point where he was sleeping in a chair at home. He is uncomfortable. Reportedly, when he presented to [facility], they felt he was in acute systolic heart failure with atrial fibrillation with a decreased ventricular rate (actually may be flutter at times). The patient was given diuretic therapy of Lasix, had good diuresis. He was found to have a mild elevation of his troponin and elevation of his BNP. He was felt to possibly be in NSTEMI. The patient does have a known cardiac history with stents x3 at [facility]; however, they have no beds. They then called our facility, we did have a telemetry bed available, he was transferred to our facility. Reportedly,they have no cardiac capabilities at [facility]. He feels he has diuresed significantly while in the [place] ER. The patient had some nagging right-sided abdominal pain which is an additional symptom complex that was described by the patient in the ER and his . His and daughter are at bedside and state his breathing has been significantly worse of late. He was transferred to our facility and shortly after his troponin increased and continued to increase to 9. He was taken for cardiac catheterization and found to have severe multivessel disease. 85-year-old male here with A-fib/flutter with bradycardia which improved with lowering metoprolol dose, possibly acute systolic heart failure. Troponin continues to rise from 0.2-->2.2->3->6-->9 and had CP that was relieved with Maalox and SLNTG, ECG unchanged NSTEMI, A-fib/flutter with Bradycardia, Mod-Severe , Mild AI, mod MR, Possible PHTN, HTN: Bradycardia improved with holding and then adding back lower dose of Toprol. Now with rising trop with vague symptoms in setting of known CAD. Cardiology following cath today showed severe multivessel disease: CARDIAC CATH: Clinical indications: Longstanding history of coronary artery disease. Remote history of 3 coronary artery stents. Details unavailable. Documentation of non ST elevation myocardial infarction ,atrial fibrillation,acute CHF on this admission.Peak troponin I thus far 9.290. Echocardiogram with LV ejection fraction 50-55%, borderline global hypokinesis of left ventricle, moderate to severe valvular aortic stenosis, mild aortic regurgitation, moderate mitral regurgitation, [id number] tricuspid regurgitation, elevated estimated right ventricular systolic pressure 40-50 mm of mercury. Coronary angiography was indicated to assess for presence of significant coronary artery disease. Catheterization site: 6 Chinese slender glide sheath right radial artery. Diagnostic catheter: 5 Chinese brachial 3.5 diagnostic catheter. This catheter was used to cross the aortic valve over a standard J tipped guidewire. Hemostasis: Terumo TR band. Complications: None Findings: Fluoroscopy revealed coronary calcifications and presence of stents in the right coronary artery. The coronary circulation was right dominant. The left main coronary artery was visualized is a diffusely diseased vessel. The distal left main had an 80-90% stenosis. The proximal and mid left main appeared to have at least 70-80% luminal diameter narrowing. The left main gave rise to medium caliber left injury sitting left circumflex coronary arteries. The proximal LAD had a 75% stenosis. Mid LAD 50% stenosis. The distal LAD was a very small caliber and terminates prior to reaching the apex of the left ventricle. MARIE 2 flow in the distal LAD. The LAD gave rise to 3 very small caliber diagonal branches. The ostium of the left circumflex had a 75% stenosis. the proximal left circumflex had a 95% stenosis. Mid circumflex had a 50% stenosis. The proximal mid circumflex gave rise to very small caliber 1st and 2nd marginal arteries. The mid circumflex then gave rise to a long small to medium caliber 3rd marginal artery. This had a 20-30% proximal stenosis. The mid segment of the marginal had 0-10% stenosis. The distal marginal had 0-10% stenosis. The right coronary was a medium to large caliber vessel. Proximal 10-20% stenosis. 50% mid stenosis. 30% distal stenosis. The RCA gave rise to long small caliber posterior descending and posterior lateral arteries. The ostium of the PDA had a 20% stenosis. Mid PDA 75-90% stenosis. Distal PDA 10-20% stenosis. The proximal posterolateral had a 50% stenosis. Plan: If the patient did undergo revascularization , CABG surgery would be indicated. This will be discussed with him by his primary tunnel miner during this hospitalization Dr. Gil Vines. He will continue on medical therapy for control of his intracardiac pressures, heart rate, systemic pressure, and CAD risk factor modification. Bradycardia improved now withholding Toprol, no PPM indicated. Echocardiogram shows preserved EF: No prior study for comparison. * The left ventricle is normal in size. * There is moderate concentric left ventricular hypertrophy. * Left ventricular systolic function is low normal. * Ejection Fraction = 50-55%. * There is borderline global hypokinesis of the left ventricle. * Moderate to severe valvular aortic stenosis. * Mild aortic regurgitation. * There is moderate mitral regurgitation. * The left atrium is mildly dilated. * There is mild to moderate tricuspid regurgitation. * Right ventricular systolic pressure is elevated at 40-50mmHg.. Holding his beta kiley for bradycardia -continue losartan with prn hydralazine for blood pressure control -restarted Toprol XL 25mg, beta kiley back on at lower dose for CHF and ACS -trend troponin to peak -[place] [facility] [place] -started heparin gtt without bolus on AM of 04/08 but stopped after cath -replaced lytes -Accepting physician is Dr. Ernesto Patterson Cardiac risk reduction did have previous stents continue aspirin plavix and zocor diabetes, Amaryl insulin sliding scale BPH, Cardura and Proscar. Probable CKD Stage III- filenet p8 developer 1.5 and no old labs for reference -renally dose meds IVFs to hydrate prior to cath today -avoid nephrotoxins For DVT prevention,on Lovenox and then heparin gtt This patient does not wish to be mechanically ventilated but will permit any other forms of resuscitation. Total Time Spent: Greater than 30 minutes This includes examination of the patient, discharge planning, medication reconciliation, and communication with other providers. Discharge Instructions Please refer to the electronic Patient Visit Report (Discharge Instructions) for additional information. Follow-Up With Cardiology and PCP within 1 week after discharge from hospital Additional Copies To Yakov Rollins D.O. ; [facility]
[2016-04-08 16:19] LABS: PARTIAL THROMBOPLASTIN RATIO 1.2
[2016-04-08] MEDS ORDERED: FLUMAZENIL 0.1 MG/1 ML 10 ML VIAL IV ONE (18:30)
--- NOTE | 2016-04-10 06:40 | EDITING REQUIRED CODING QUERY ---
CONGESTIVE HEART FAILURE To Promote full compliance with coding requirements relating to patient care, physician participation is requested in all cases of care aid uncertainty. Please assist us with the following questions. Dr. Christopher, A diagnosis of congestive heart failure is documented in the patient's medical record with alternating diagnoses of systolic or diastolic. To accurately code this diagnosis and to compare patient severity, we ask that you clarify the type of heart failure by placing an X within the parenthesis (x). 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
== END 2016-04-08 19:04 | disposition short-term general hospital (02) | DRG 280 ==
LOC: C.MSICU 09:30 → C.2E 17:42
PROVIDERS: ADMIT Internal Medicine; ATTEND Family Medicine
PROC: 4A023N7 Measurement of Cardiac Sampling and Pressure, Left Heart, Percutaneous Approach (ICD-10-PCS; principal; 2016-04-08 09:28)
PROC: B2111ZZ Fluoroscopy of Multiple Coronary Arteries using Low Osmolar Contrast (ICD-10-PCS; principal; 2016-04-08 09:28)
DX: I21.4 Non-ST elevation (NSTEMI) myocardial infarction (principal); I50.43 Acute on chronic combined systolic (congestive) and diastolic (congestive) heart failure; I48.92 Unspecified atrial flutter; I13.0 Hypertensive heart and chronic kidney disease with heart failure and stage 1 through stage 4 chronic kidney disease, or unspecified chronic kidney disease; I25.10 Atherosclerotic heart disease of native coronary artery without angina pectoris; I48.0 Paroxysmal atrial fibrillation; R00.1 Bradycardia, unspecified; I27.2 Other secondary pulmonary hypertension; E11.22 Type 2 diabetes mellitus with diabetic chronic kidney disease; N18.3 Chronic kidney disease, stage 3 (moderate); E78.00 Pure hypercholesterolemia, unspecified; N40.0 Benign prostatic hyperplasia without lower urinary tract symptoms; I08.3 Combined rheumatic disorders of mitral, aortic and tricuspid valves; Z95.5 Presence of coronary angioplasty implant and graft; Z96.649 Presence of unspecified artificial hip joint; Z87.891 Personal history of nicotine dependence; Z79.02 Long term (current) use of antithrombotics/antiplatelets; Z79.82 Long term (current) use of aspirin; Z79.84 Long term (current) use of oral hypoglycemic drugs; Z79.899 Other long term (current) drug therapy